=== PATIENT | male | born 1995 | race Caucasian/White ===

== ENCOUNTER 2025-07-14 12:28 | Emergency (ER) | payer BC, SELFPAY ==
[2025-07-14 12:58] VITALS: BP 139/89; PULSE 66; RESP 18; TEMP 36.7; O2SAT 100; BMI 31.3
--- NOTE | 2025-07-14 13:42 | ED.GENADULT ---
HPI - General Adult General Chief complaint: Chest Pain Stated complaint: chest tightness, some shortness of breath Time Seen by Provider: 07/14/25 13:38 History of Present Illness HPI narrative: Sun noticed heart was beating fast and went away, yesterday after work felt like it was skipping beats and jumping and has been continuing to do so, feels chest is a little tight with mild SOB A 29-year-old man presenting to the emergency depart with concern of rapid heart rate. He continues to do this. 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 Primarily heat exposure sometimes. Sounds like it does a decent job of hydrating. Feeling some discomfort in his chest intermittently and skipping beats. Maybe a little short of air but some tightness in his chest. Has had this happen intermittently in the past. More so beginning yesterday evening and through today today though. Minimal caffeine intake. Father seems familiar with PVCs as we are watching monitor seeing evidence of PVCs. Related Data Home Medications ?Medication ?Instructions ?Recorded ?Confirmed No Known Home Medications 07/14/25 07/14/25 Allergies Allergy/AdvReac Type Severity Reaction Status Date / Time No Known Drug Allergies Allergy Verified 07/14/25 13:02 Review of Systems Status of ROS: Reports: 6 or more systems reviewed and unremarkable except as noted in History and below PFSH PFS Social History Smoking Status: Never smoker How often do you have a drink containing alcohol: 4 or more times a week AUDIT-C Alcohol total score: 4 Non-prescribed substance use: denies use Exam Narrative: Exam Narrative: Pleasant. Calm. NAD. Breathing easily. Lungs are clear. Heart with intermittent/ectopic beats. Regular rate. No murmur. Extremities are well perfused without edema. Cranial nerves 2-12 intact. Observing on monitor that there appeared to be isolated PVCs fairly regular. These coincide with noted symptoms. Const: Vital Signs, click to edit/add: Vital Signs - 24 hr 07/14/25 12:58 Temperature 98.0 F Pulse Rate [Right Pulse Oximeter] 66 Respiratory Rate 18 Blood Pressure [Ri ght Upper Arm] 139/89 Pulse Oximetry 100 Oxygen Delivery Me thod Room Air Documenting provider has reviewed patient's vital signs: yes Course Vital Signs Vital signs: Initial Vital Signs Temperature 98.0 F 07/14/25 12:58 Temperature Source Temporal Artery Scan 07/14/25 12:58 Pulse Rate 66 07/14/25 12:58 Respiratory Rate 18 07/14/25 12:58 Blood Pressure 139/89 07/14/25 12:58 Blood Pressure Mean 105 07/14/25 12:58 Blood Pressure Position Sitting 07/14/25 12:58 Pulse Oximetry 100 07/14/25 12:58 Oxygen Delivery Method Room Air 07/14/25 12:58 Vital Signs Temperature 98.0 F 07/14/25 12:58 Pulse Rate 66 07/14/25 12:58 Respiratory Rate 18 07/14/25 12:58 Blood Pressure 139/89 07/14/25 12:58 Pulse Oximetry 100 07/14/25 12:58 Oxygen Delivery Method Room Air 07/14/25 12:58 Temperature 98.0 F 07/14/25 12:58 Pulse Rate 66 07/14/25 12:58 Respiratory Rate 18 07/14/25 12:58 Blood Pressure 139/89 07/14/25 12:58 Pulse Oximetry 100 07/14/25 12:58 Oxygen Delivery Method Room Air 07/14/25 12:58 Medical Decision Making MDM Narrative Medical decision making narrative: Has not had duration or persistence of these to necessitate intervention I think at this point. We did discuss IV hydration and chemistry another stimulant causes. Does not take any other substances. Does not feel like he needs IV fluids here today. EKG did capture PVC. See below. Did decide to together draw chemistries prior to departure. See patient discharge plan for further discussion No restrictions on activity at this time. Continue to stay well-hydrated. I will call you if anything abnormal in your labs shows up that needs addressing. Otherwise follow-up if these are not settling down over a week or so or if they seem to be becoming more intense, you are becoming more uncomfortable. Lab Data Lab results reviewed: Yes I reviewed the patient's lab results Labs: Lab Results 07/14/25 Range/Units 14:12 Hgb 15.9 (13.5-17.5) gm/dL Sodium 138 (135-149) mmol/L Potassium 4.4 (3.6-5.1) mmol/L Chloride 101 (96-114) mmol/L Carbon Dioxide 31 (20-32) mmol/L Anion Gap 6 L (7-15) mEq/L BUN 10 (5-24) mg/dL Creatinine 0.7 (0.5-1.5) mg/dL Estimated Creat Clear 162.22 Estimated GFR 129 ml/min Glucose 99 (60-115) mg/dL Calcium 10.0 (8.4-10.6) mg/dL Magnesium 2.0 (1.5-2.6) mg/dL ECG Data Attestation: I personally reviewed and interpreted this ECG as follows: (Sinus rhythm. Looks like a effusion complex; I think this represents a PVC. Rate of 60) Discharge Plan Discharge Clinical Impression: Symptomatic PVCs Patient Disposition: Home w/ Parent or Adult Condition: Stable Additional Instructions: No restrictions on activity at this time. Continue to stay well-hydrated. I will call you if anything abnormal in your labs shows up that needs addressing. Otherwise follow-up if these are not settling down over a week or so or if they seem to be becoming more intense, you are becoming more uncomfortable. Prescriptions: No Action No Known Home Medications Stand Alone Forms: [employer] Info Instructions
--- OUTSIDE RECORDS SUMMARY | 2025-07-14 14:20 | XMS_ITS | Clinical Summary ---
Author Organization [facility] Address [address] [place] [address] Care Team Providers Care Emu Farmer Name Role Phone Unknown, Doctor Primary Care Provider Unavailabl e Allergies No known active allergies Social History Tobacco Use Types Packs/Day Years Used Date Smoking Tobacco: Never Smokeless Tobacco: Current Alcohol Use Standard Drinks/Week Comments Yes 0 (1 standard drink = 0.6 oz pur e alcohol) Social Connections Answer Date Recorded Frequency of Communication with Friends and Fami ly Not on file 11/19/2021 Financial Resource Strain Answer Date R ecorded Difficulty of Paying Living Expenses Not on file 11/19/2021 Difficulty of Paying Living Expenses Not on file 11/19/2021 Sex and Gender Information Value Date Recorded Sex Assigned at Not on file Legal Sex Male 1:14 PM CDT Gender Identity Not on file Sexual Orientation Not on file Obstetrics History Last Filed Vital Signs Vital Sign Reading Time Taken Comments Blood Pressure 124/74 03/30/2020 1:12 PM CDT Pulse 72 03/30/2020 1:12 PM CDT Temperature 37.1 C (98.8 F) 03/30/2020 1:12 PM CDT Respiratory Rate - - Oxygen Saturation - - Inhaled Oxygen Concentration - - Weight 88.5 kg (195 lb) 03/30/2020 1:12 PM CDT Height 175.3 cm (5' 9) 03/30/2020 1:12 PM CDT Body Mass Index 28.8 03/30/2020 1:12 PM CDT Plan of Treatment Health Maintenance Due Date Last Done Comments Tetanus booster 2007 Depression screening for age 12+ 2008 HIV for age 15-65 2011 Hepatitis C screening for ag e 18-79 2014 Hepatitis B series for 19+ ( 1 of 3 - 19+ 3-dose series) 2015 BMI (ht and wt on same day) for age 18+ 03/30/2021 03/30/2020 COVID-19 vaccine series (2023- season) 2024 Influenza Vaccine (#1) 2025 Pneumococcal series for age 6-49 Aged Out No longer eligible based on patient's age to complete this topic Care Teams Emu Farmer Relationship Specialty Start Date End Date Unknown, Doctor . PCP - General 03/25/20
--- OUTSIDE RECORDS SUMMARY | 2025-07-14 14:20 | XMS_ITS | Clinical Summary ---
Author Organization [facility] Address [address] [place] [address] Care Team Providers Care Child Specialist Name Role Phone Declined, Pcp Primary Care Provider Unavailab le Source Comments If you need additional information that is not available on Care Everywhere, please contact our Medical Records Department during business hours (Sunday - Sunday, 8 am - 5 pm) at . During nonbusiness hours, please contact our Trauma and Emergency Center at .Tame Allergies Active Allergy Reactions Criticality Noted Date Comments Bee Venom Protein (Honey Bee) Swelling 2016 Medications * Medications may not be up to date as of this document. Always verify current medications with the patient. No known medications Social History Tobacco Use Types Packs/Day Years Used Date Smoking Tobacco: Never Smokeless Tobacco: Current Chew Last attempted to quit: 02/25/2017 Tobacco Cessation:Ready to Q uit: Not Asked; Counseling Given: Not Answered Alcohol Use Standard Drinks/Week Comments Yes 0 (1 standard drink = 0.6 oz pur e alcohol) occassionally Sex and Gender Information Value Date Recorded Sex Assigned at Not on file Legal Sex Male 3:46 PM CDT Gender Identity Not on file Sexual Orientation Not on file Obstetrics History Last Filed Vital Signs Vital Sign Reading Time Taken Comments Blood Pressure 143/64 06/28/2024 11:45 AM CDT Pulse 95 06/28/2024 11:45 AM CDT Temperature 37 C (98.6 F) 06/28/2024 11:41 AM CDT Respiratory Rate 16 06/28/2024 11:41 AM CDT Oxygen Saturation 98% 06/28/2024 11:45 AM CDT Inhaled Oxygen Concentration - - Weight 95.3 kg (210 lb) 06/28/2024 11:43 AM CDT Height 177.8 cm (5' 10) 06/28/2024 11:43 AM CDT Body Mass Index 30.13 06/28/2024 11:43 AM CDT Plan of Treatment Health Maintenance Due Date Last Done Comments Diabetes Screening 1996 Hepatitis C Screening 1996 Lipid Screening 2014 Wellness Visit 2014 Depression/Anxiety PHQ4 03/27/2018 03/27/2017 COVID-19 Vaccine ( season) 2024 Influenza Vaccine (#1) 2025 1, 09/23/2010, 10/22/2009, Additional history exists DTaP/Tdap/Td Vaccine (8 - Td or Tdap) 11/22/2026 11/22/2016, 10/01/2008, 10/08/2001, Additional history exists Shingles Vaccine (Zoster) (1 of 2) 2046 Hepatitis B Vaccine Completed 08/04/1997, 1996, 1996 HIB Vaccine Completed 12/31/1997, 12/20, 03/27/1997, Additional history exists MMR Completed 10/08/2001, 12/31/1997 Pneumococcal Vaccine: Pediatrics (0 to 5 Years) and At-Risk Patients (6 to 49 Years) Aged Out 10/08/2001, 10/05/2000 No longer eligibl e based on patient's age to complete this topic Polio (IPV) Vaccine Discontinued 10/08/2001, 12/31/1997, 01/30/1997, Additional history exists HEPATITIS A Completed 09/23/2010, 10/01/2008 Meningococcal Vaccine (MenACWY) Completed 06/09/2015 HPV Vaccine Completed 11/22/2016, 07/20, 06/09/2015 Meningococcal B Vaccine Aged Out No l onger eligible based on patient's age to complete this topic RSV Pediatric Aged Out No longer elig ible based on patient's age to complete this topic Rotavirus Vaccine Aged Out No longer eligible based on patient's age to complete this [place] [id number] [place] [address] Care Teams Child Specialist Relationship Specialty Start Date End Date Declined, PcpMD [phone] [facility] [place] [address] PCP - General Family Medicine 03/28/17
--- OUTSIDE RECORDS SUMMARY | 2025-07-14 14:20 | XMS_ITS | Clinical Summary ---
Author Organization [facility] Address [address] [place] [address] Care Team Providers Care Sole Edge Inker Machine Name Role Phone No Ref-Primary, Physician Primary Care Provider Allergies No known active allergies Medications ORDER FOR DMEIndications: Knee pain Tall Adult Crutches 1 Device 0 1 Active ORDER FOR DMEIndications: Knee pain Large Immobilizer 18 1 Device 0 1 Active oxycodone-aceta minophen (PERCOCET) 5-325 MG per tabletIndicatio ns:Patellar tendonitis Take 1-2 tablets by mouth every 4 hours as needed for pain. 30 tablet 0 1 Active ibuprofen (ADVIL,MOTRIN) 600 MG tablet Take 1 tablet by mouth every 6 hours as needed for pain. 30 tablet 1 3 Active traMADol (ULTRAM) 50 MG tablet Take 1-2 tablets by mouth every 6 hours as needed for pain. 20 tablet 0 3 Active Active Problems Problem Noted Date Diagnosed Date Pain in joint, lower leg 05/13/2012 Kalyani-Schlatter's disease 05/13/2012 Resolved Problems Problem Noted Date Diagnosed Date Resolved Date Edema 04/28/2021 10/20/2021 Left knee pain 02/03/2021 10/20/2021 Knee pain 10/16/2011 01/30/2012 Other postprocedural status(V45.89) 10/16/2011 01/30/2012 Gait difficulty 08/04/2011 10/02/2011 Ruptured patellar tendon 08/02/2011 Other postprocedural status(V45.89) 08/02/2011 10/02/2011 Kalyain-Schlatter's disease 06/05/2011 0 08/11/2011 Overview (08/19/2012): (Problem list name updated by automated process. Provider to review and confirm.) Pain in joint, lower leg 06/05/2011 Social History Tobacco Use Types Packs/Day Years Used Date Smoking Tobacco: Never Alcohol Use Standard Drinks/Week Comments No 0 (1 standard drink = 0.6 oz pur e alcohol) Adolescent Education Answer Date Record ed Getting School Help Needed Not on file 08/17 Sex and Gender Information Value Date Recorded Sex Assigned at Not on file Legal Sex Male 3:26 AM AUDIT REVIEWER Gender Identity Not on file Sexual Orientation Not on file Last Filed Vital Signs Vital Sign Reading Time Taken Comments Blood Pressure 149/92 05/15/2013 4:00 PM CDT Pulse 81 10/11/2011 11:22 AM AUDIT REVIEWER Temperature 36.6 C (97.9 F) 10/11/2011 2:10 PM AUDIT REVIEWER Respiratory Rate 14 10/11/2011 2:10 PM AUDIT REVIEWER Oxygen Saturation 97% 05/15/2013 4:15 PM CDT Inhaled Oxygen Concentration - - Weight 79.4 kg (175 lb) 10/11/2011 11:22 AM AUDIT REVIEWER Height 175.3 cm (5' 9) 10/11/2011 11:22 AM AUDIT REVIEWER Body Mass Index 25.84 10/11/2011 11:22 AM AUDIT REVIEWER Plan of Treatment Not on file Insurance [employer] [facility] [employer] Care Teams Sole Edge Inker Machine Relationship Specialty Start Date End Date No Ref-Primary, Physician PCP - General 02/08/21
--- OUTSIDE RECORDS SUMMARY | 2025-07-14 14:20 | XMS_ITS | Clinical Summary ---
Author Organization [facility] Address [address], [place] [address] Care Team Providers Care Research Biologist Name Role Phone Found, No Pcp Primary Care Provider Unavailab le Source Comments You are receiving this document as you are listed as the primary care provider,follow-up provider, or the patient has been referred to you for consultation.This is in compliance with the Medicare and[facility] EHR Incentive Program,which states Providers who transition their patient to another setting of careor provider of care or refers their patient to another provider of care shouldprovide summary care record for each transition of care or referral. [facility] Allergies Active Allergy Reactions Criticality Noted Date Comments Bee Venom Swelling 03/27/2017 Medications erythromycin 5 MG/GM (0.5%) eye ointment Place 0.5 Inches into left eye every 6 hours. Active Active Problems No known active problems Immunizations Immunization Administration Dates Next Due 9vHPV (Gardasil 9) 11/22/2016,08/07/2015, 015 DTaP 10/08/2001, 8,03/27/1997,1996,1996 DTaP/Hib 12/31/1997 Flu Vac (3+ yrs) 10/09/2011, 0,10/01/2008,2002,10/09/2002,11/21/2001 [id number] 10/22/2009 HepA Ped/Adol (1-18 yrs) 09/23/2010,10/01/2008 HepB Ped/Adol (0-18 yrs) 08/04/1997,1996,1 12/09/1995 Hib (ActHIB) 03/27/1997,01/30/1997,1996 Hib (PedvaxHIB) 12/31/1997 IPV (Polio) 10/08/2001,01/30/1997,1996 Influenza LAIV3 2-49 years (Flumist) 10/22/2009 MCV4 (Menactra) 06/09/2015 MMR 10/08/2001,12/31/1997 OPV, Trivalent (Orimune or tOPV) 12/31/1997 Pneumococcal 7, PED 10/08/2001,10/05/2000 Td (7+ yrs) 11/22/2016 Tdap 10/01/2008 Varicella 10/01/2008,12/31/1997 Social History Tobacco Use Types Packs/Day Years Used Date Smoking Tobacco: Never Smokeless Tobacco: Former Chew Comments:2 cans a week Alcohol Use Standard Drinks/Week Comments Yes 0 (1 standard drink = 0.6 oz pur e alcohol) occ PHQ-2 Answer Date Recorded PHQ-2 Score 0 07/14/2020 Sex and Gender Information Value Date Recorded Sex Assigned at Not on file Legal Sex Male 2:51 PM CDT Gender Identity Not on file Sexual Orientation Not on file Last Filed Vital Signs Vital Sign Reading Time Taken Comments Blood Pressure 147/72 01/25/2021 12:31 PM FILM PROCESSING SHIFT SUPERVISOR Pulse 89 01/25/2021 12:31 PM FILM PROCESSING SHIFT SUPERVISOR Temperature - - Respiratory Rate - - Oxygen Saturation - - Inhaled Oxygen Concentration - - Weight 96.6 kg (213 lb) 01/25/2021 12:31 PM FILM PROCESSING SHIFT SUPERVISOR Height 177.8 cm (5' 10) 01/25/2021 12:31 PM FILM PROCESSING SHIFT SUPERVISOR Body Mass Index 30.56 01/25/2021 12:31 PM FILM PROCESSING SHIFT SUPERVISOR Plan of Treatment Health Maintenance Due Date Last Done Comments Hep C Screening (Preventive Services) 1996 HIV Screening (Preventive Services) 2012 Adult Preventive Visit 2014 COVID-19 Vaccine ( season) 2024 Influenza Vaccine (#1) 2025 1, 09/23/2010, 10/22/2009, Additional history exists DTaP/Tdap/Td Vaccine (8 - Tdap) 11/22/2026 11/22/2016, 10/01/2008, 10/08/2001, Additional history exists Zoster/Shingles Vaccine (1 of 2) 2046 HepB Vaccine Completed 08/04/1997, 04/1997, 1996 Hib Vaccine Completed 12/31/1997, 12/20, 03/27/1997, Additional history exists IPV (Polio) Vaccine Completed 10/08/2001, 12/31/1997, 01/30/1997, Additional history exists Pneumococcal Vaccine Aged Out 10/08/2001, 10/05/20 00 No longer eligible based on patient's age to complete this topic Varicella Vaccine Completed 10/01/2008, 12/31/1997 HepA Vaccine Completed 09/23/2010, 10/01/2008 MCV4 Vaccine Completed 06/09/2015 HPV Vaccine Completed 11/22/2016, 07/20, 06/09/2015 Meningococcal B Vaccine Aged Out No l onger eligible based on patient's age to complete this topic Insurance Care Teams Research Biologist Relationship Specialty Start Date End Date Found, No Pcp, [id number] [place] [address] PCP - General 10/16/18
[2025-07-14 14:21] LABS: Hemoglobin* 15.9 gm/dL (13.5-17.5)
[2025-07-14 14:30] LABS: Chloride* 101 mmol/L (96-114); Potassium* 4.4 mmol/L (3.6-5.1); Sodium* 138 mmol/L (135-149)
[2025-07-14 14:33] LABS: Anion Gap 6 mEq/L (7-15); Blood Urea Nitrogen* 10 mg/dL (5-24); Calcium* 10.0 mg/dL (8.4-10.6); Carbon Dioxide* 31 mmol/L (20-32); Creatinine* 0.7 mg/dL (0.5-1.5); Est. Creatinine Clearance* 162.22; Estimated Glomerular Filt Rate 129 ml/min; Glucose* 99 mg/dL (60-115)
== END 2025-07-14 14:23 | disposition home or self-care (01) ==
LOC: ED 14:19
PROVIDERS: Emergency Provider Family Medicine
DX: I49.3 Ventricular premature depolarization (principal); R07.9 Chest pain, unspecified
CPT/HCPCS: 36415; 80048; 83735; 85018; 99283; 99284